=== PATIENT | male | born 1990 | race American Indian/Alaskan Native ===

== ENCOUNTER 2018-04-02 07:13 | Emergency (ER) | payer SELFPAY ==
[2018-04-02 07:38] LABS: Basophils % (Auto) 0.9 % (0.0-1.8); Eosinophils # (Auto) 0.2 K/mm3 (0.0-0.4); Eosinophils % (Auto) 2.8 % (0.0-4.3); Hematocrit 41.6 % (35.5-45.6); Hemoglobin 13.8 gm/dl (11.8-15.2); Lymphocytes # (Auto) 2.5 K/mm3 (1.2-5.4); Lymphocytes % (Auto) 44.3 % (13.4-35.0); Mean Corpuscular HGB Conc 33 % (32-34); Mean Corpuscular Hemoglobin 30 pg (28-32); Mean Corpuscular Volume 89 fl (84-94); Monocytes # (Auto) 0.4 K/mm3 (0.0-0.8); Monocytes % (Auto) 6.8 % (0.0-7.3); Platelet Count 246 K/mm3 (140-440); Red Blood Count 4.66 M/mm3 (3.65-5.03); Red Cell Distribution Width 14.1 % (13.2-15.2)
[2018-04-02 07:52] LABS: BUN/Creatinine Ratio 16; Blood Urea Nitrogen 13 mg/dL (9-20); Calcium 8.9 mg/dL (8.4-10.2); Hemolysis Index 6
[2018-04-02 08:05] VITALS: BP 115/76
--- NOTE | 2018-04-02 08:18 | Emergency Department Report ---
ED Chest Pain HPI - General Chief Complaint: Chest Pain Stated Complaint: SHARP C/P Time Seen by Provider: 04/02/18 08:00 Source: patient Mode of arrival: Ambulatory Limitations: No Limitations - History of Present Illness Initial Comments: Patient is a 27-year-old male that presents emergency room with complaints of chest pain 30 minutes. Patient states the pain has resolved. Patient states the chest pain lasted approximately 2-3 minutes. Patient states that the chest pain was a 3 out of 10 and he drank some water and burped and chest pain was resolved. Patient states he is not having chest pain at this time. Patient states he came to the ER to have his chest pain evaluated. Patient states that the incident took place at approximately 0600 this morning. Patient states the pain started after bending over to attach the leash to his dog's collar. Patient states that one he was bent over the pain came on as a pressure in his chest and was better after standing up straight and drinking water. Patient states the pain was completely resolved after burping and has not returned. Patient denies shortness of breath at this time however when chest pain originally started patient had slight shortness of breath until burping. Patient denies fever and chills. Patient denies abdominal pain. He states he does have a past medical history and is not taking any medications. pt she has really bad anxiety so when a physical synthetase PlayStation over thinks it and develops other physical symptoms. MD Complaint: chest pain -: Sudden Severity: mild Severity scale (0 -10): 3 Quality: sharp, pressure Consistency: now resolved Improves With: other (water and burping) Worsens With: nothing re: denies: nausea, vomting, diaphoresis, dyspnea, sense of impending doom Other Symptoms: burping. denies: cough, fever, syncope, rash, acid taste in mouth, leg swelling, palpitations Treatments Prior to Arrival: none Aspirin use within the Past 7 Days: (0) No - Related Data On Oral Contraceptives: No Previous Rx's Medication Instructions Recorded Last Taken Type Esomeprazole Magnesium [Nexium] 40 mg PO DAILY #15 capsule. 04/02/18 Unknown Rx Allergies Allergy/AdvReac Type Severity Reaction Status Date / Time No Known Allergies Allergy Unverified 09/01/14 12:39 Heart Score - HEART Score History: Slightly suspicious EKG: Normal Age: < 45 Risk factors: No known risk factors Troponin: < normal limit HEART Score: 0 ED Review of Systems ROS: Stated complaint: SHARP C/P Other details as noted in HPI Constitutional: denies: chills, fever Eyes: denies: eye pain, eye discharge, vision change ENT: denies: ear pain, throat pain Respiratory: denies: cough, shortness of breath, wheezing Cardiovascular: chest pain. denies: palpitations Endocrine: no symptoms reported Gastrointestinal: denies: abdominal pain, nausea, diarrhea Genitourinary: denies: urgency, dysuria Musculoskeletal: denies: back pain, joint swelling, arthralgia Skin: denies: rash, lesions Neurological: denies: headache, weakness, paresthesias Psychiatric: anxiety. denies: depression Hematological/Lymphatic: denies: easy bleeding, easy bruising ED Past Medical Hx - Past Medical History Previous Medical History?: Yes Hx Psychiatric Treatment: Yes (anxiety) - Surgical History Past Surgical History?: No - Family History Family history: no significant - Social History Smoking Status: Never Smoker Substance Use Type: Marijuana - Medications Home Medications: Home Medications Medication Instructions Recorded Confirmed Last Taken Type Esomeprazole Magnesium [Nexium] 40 mg PO DAILY #15 capsule. 04/02/18 Unknown Rx ED Physical Exam - General Limitations: No Limitations General appearance: alert, in no apparent distress - Head Head exam: Present: atraumatic, normocephalic - Eye Eye exam: Present: normal appearance - ENT ENT exam: Present: mucous membranes moist - Neck Neck exam: Present: normal inspection - Respiratory Respiratory exam: Present: normal lung sounds bilaterally, chest wall tenderness. Absent: respiratory distress - Cardiovascular Cardiovascular Exam: Present: regular rate, normal rhythm. Absent: systolic murmur, diastolic murmur, rubs, gallop - GI/Abdominal GI/Abdominal exam: Present: soft, normal bowel sounds - Rectal Rectal exam: Present: deferred - Extremities Exam Extremities exam: Present: normal inspection - Back Exam Back exam: Present: normal inspection - Neurological Exam Neurological exam: Present: alert, oriented X3 - Psychiatric Psychiatric exam: Present: normal affect, normal mood - Skin Skin exam: Present: warm, dry, intact, normal color. Absent: rash ED Course Vital Signs 04/02/18 04/02/18 07:16 07:57 Temperature 98.5 F Pulse Rate 69 55 L Respiratory 18 16 Rate Blood Pressure 114/70 Blood Pressure 115/76 [Right] O2 Sat by Pulse 99 98 Oximetry - Reevaluation(s) Reevaluation #1: She is pain-free and we will wait for pending labs. EKG is normal. 04/02/18 08:15 JAE score - Jae Score Age > 65: (0) No Aspirin use within the Past 7 Days: (0) No 3 or more CAD Risk Factors: (0) No 2 or more Angina events in past 24 hrs: (0) No Known CAD with more than 50% Stenosis: (0) No Elevated Cardiac Markers: (0) No ST Deviation Greater than 0.5mm: (0) No JAE Score: 0 ED Medical Decision Making - Lab Data Result diagrams: 04/02/18 07:22 04/02/18 07:22 - EKG Data -: EKG Interpreted by Me EKG shows normal: sinus rhythm, axis, intervals, QRS complexes, ST-T waves Rate: bradycardia - EKG Data Interpretation: normal EKG - Medical Decision Making Patient is a 27-year-old male presents emergency room with chest pain that has resolved prior to coming to the emergency room. Chest pain appears to be secondary to acid reflux and gas. Chest pain appears to be a gas pain and was resolved with burping. Patient will be discharged home and instructed to follow up with primary care in 3-5 days. Patient will be giving a acid reflux medication in order to prevent recurrence. Patient's labs and heart studies are normal. Patient is stable for discharge. EKG shows a sinus bradycardia with normal QRS and normal STs.. Patient also had chest wall tenderness on exam. Patient encouraged to follow up with primary care for management of his anxiety as well. - Differential Diagnosis chest pain. GERD. Chest wall pain. Anxiety. Critical care attestation.: If time is entered above; I have spent that time in minutes in the direct care of this critically ill patient, excluding procedure time. ED Disposition Clinical Impression: Costochondritis, Anxiety GERD (gastroesophageal reflux disease) Qualifiers: Esophagitis presence: without esophagitis Qualified Code(s): K21.9 - Gastro- esophageal reflux disease without esophagitis Chest pain Qualifiers: Chest pain type: unspecified Qualified Code(s): R07.9 - Chest pain, unspecified Disposition: - TO HOME OR SELFCARE Is pt being admited?: No Does the pt Need Aspirin: No Condition: Stable Instructions: Chest Pain (ED), Diet for Ulcers and Gastritis (ED), Costochondritis (ED), Gastroesophageal Reflux Disease (ED), Anxiety (ED) Additional Instructions: Patient to follow-up with primary care through to 5 days. Patient to follow with GI in 3-5 days. Patient to eat a reflux diet. Patient to increase water. Patient to return to ER if condition worsens. Patient to rest. Patient to avoid exertion until follow-up with primary care. Patient to take Tylenol when necessary for pain Prescriptions: Esomeprazole Magnesium [Nexium] 40 mg PO DAILY #15 capsule. Referrals: PRIMARY CARE, [Primary Care Provider] - 3-5 Days Forms: Work/School Release Form(ED) Time of Disposition: 08:48
== END 2018-04-02 09:14 | disposition home or self-care (01) ==
LOC: ED 07:13
DX: M94.0 Chondrocostal junction syndrome [Tietze] (principal); K21.9 Gastro-esophageal reflux disease without esophagitis; F41.9 Anxiety disorder, unspecified; F12.10 Cannabis abuse, uncomplicated
CPT/HCPCS: 36415; 80048; 84484; 85025; 93005; 93010; 99284

== ENCOUNTER 2019-12-12 04:07 | Emergency (ER) | payer SELFPAY ==
[2019-12-12 04:13] VITALS: BP 119/78
--- NOTE | 2019-12-12 08:07 | Emergency Department Report ---
ED Male HPI - General Chief complaint: Urogenital-Male Stated complaint: PAIN WHILE URINATING Time Seen by Provider: 12/12/19 07:30 Source: patient Mode of arrival: Ambulatory Limitations: No Limitations - History of Present Illness Initial comments: This is a 29-year-old male nontoxic, well nourished in appearance, no acute signs of distress presents to the ED for possible gonorrhea. Patient stated that his girlfriend has been diagnosed with gonorrhea and is concerned. Patient stated he had some white penile discharge and is intermittent. Patient denies any testicular pain or swelling. Patient denies any penile ulcers or lesions. Patient denies any nausea, vomiting, chest pain, shortness of breathe, fever, chills, headache, back pain, numbness, tingling, stiff neck. Patient denies any urinary symptoms. Patient denies any allergies or PMH. MD Complaint: penile discharge -: days(s) Radiation: none Severity scale (0 -10): 0 Worsens with: none discharge. denies: swelling, mass, rash, urinary retention, blood in urine, dysuria, fever, nausea/vomiting, incontinence - Related Data Sexually active: Yes Previous Rx's Medication Instructions Recorded Last Taken Type Esomeprazole Magnesium [Nexium] 40 mg PO DAILY #15 capsule. 04/02/18 Unknown Rx Allergies Allergy/AdvReac Type Severity Reaction Status Date / Time No Known Allergies Allergy Unverified 09/01/14 12:39 ED Review of Systems ROS: Stated complaint: PAIN WHILE URINATING Other details as noted in HPI Constitutional: denies: chills, fever Eyes: denies: eye pain, eye discharge, vision change ENT: denies: ear pain, throat pain Respiratory: denies: cough, shortness of breath, wheezing Cardiovascular: denies: chest pain, palpitations Endocrine: no symptoms reported Gastrointestinal: denies: abdominal pain, nausea, diarrhea Genitourinary: discharge. denies: urgency, dysuria, frequency, hematuria, testicular pain, testicular mass Musculoskeletal: denies: back pain, joint swelling, arthralgia Skin: denies: rash, lesions Neurological: denies: headache, weakness, paresthesias Psychiatric: denies: anxiety, depression Hematological/Lymphatic: denies: easy bleeding, easy bruising ED Past Medical Hx - Past Medical History Previous Medical History?: Yes Hx Psychiatric Treatment: Yes (anxiety) - Surgical History Past Surgical History?: No - Social History Smoking Status: Current Every Day Smoker Substance Use Type: Marijuana - Medications Home Medications: Home Medications Medication Instructions Recorded Confirmed Last Taken Type Esomeprazole Magnesium [Nexium] 40 mg PO DAILY #15 capsule. 04/02/18 Unknown Rx ED Physical Exam - General Limitations: No Limitations General appearance: alert, in no apparent distress - Head Head exam: Present: atraumatic, normocephalic - Extremities Exam Extremities exam: Present: normal inspection, full ROM - Back Exam Back exam: Present: normal inspection, full ROM. Absent: tenderness, CVA tenderness (R), CVA tenderness (L), muscle spasm, paraspinal tenderness, vertebral tenderness, rash noted - Neurological Exam Neurological exam: Present: alert, oriented X3, normal gait - Psychiatric Psychiatric exam: Present: normal affect, normal mood - Skin Skin exam: Present: warm, dry, intact, normal color. Absent: rash ED Course Vital Signs 12/12/19 04:11 Temperature 97.8 F Pulse Rate 67 Respiratory 18 Rate Blood Pressure 119/78 O2 Sat by Pulse 99 Oximetry - Reevaluation(s) Reevaluation #1: 12/12/19 08:06 Patient is speaking in full sentences with no signs of distress noted. ED Medical Decision Making - Medical Decision Making This is a 29-year-old male that presents with nonmedical emergency. Patient is stable and was examined by me. Patient is asymptomatic and denies any symptoms. I will refer the patient [facility] and health Department. At time of discharge, the patient does not seem toxic or ill in appearance. No acute signs of distress noted. Patient agrees to discharge treatment plan of care. No further questions noted by the patient. Critical care attestation.: If time is entered above; I have spent that time in minutes in the direct care of this critically ill patient, excluding procedure time. ED Disposition Clinical Impression: Possible exposure to STD Disposition: Z- MED SCREENING EXAM-LEFT Is pt being admited?: No Does the pt Need Aspirin: No Condition: Stable Instructions: Safe Sex (ED) Additional Instructions: Follow-up with a primary care doctor in 3-5 days or if symptoms worsen and continue return to emergency room as soon as possible. Referrals: PRIMARY CAREMD [Primary Care Provider] - 3-5 Days ALEKSANDRA COLEMAN MD [Staff Physician] - 3-5 Days [facility] [Provider Group] - 3-5 Days
== END 2019-12-12 08:20 | disposition left against medical advice (07) ==
LOC: ED 04:07
DX: R36.9 Urethral discharge, unspecified (principal); F41.9 Anxiety disorder, unspecified; F17.200 Nicotine dependence, unspecified, uncomplicated; F12.10 Cannabis abuse, uncomplicated; Z20.2 Contact with and (suspected) exposure to infections with a predominantly sexual mode of transmission; Z79.899 Other long term (current) drug therapy
CPT/HCPCS: 99281